=== PATIENT | female | born 1965 | race African-American/Black ===

== ENCOUNTER 2020-09-27 10:14 | Outpatient (CLI) | payer MEDICARE, MEDICAID, SELFPAY ==
--- NOTE | ~2020-09-27 | XR_ITS ---
EXAMINATION: XR lg joint inject/asp w image DATE: 09/27/2020 10:59 INDICATION: Right hip arthritis. TECHNIQUE: A time-out was performed to verify the patient's name, date of , and procedure to b e performed. The procedure including the risks, benefits, and alternatives was discussed with the pat ient. Risks discussed included bleeding and infection. The patient understood the risks and agreed to proceed. The skin overlying the right hip joint was prepped and draped in usual sterile fashion. A nesthetic was administered with 1% lidocaine subcutaneously. A 22 G needle was advanced under fluoro scopic guidance into the joint. Injection of 1 mL of Omnipaque 240 confirmed intra-articular positio n of the needle. Subsequently, injectate consisting of 2 mL 0.5% bupivacaine and 1 mL 80 mg/mL Depo- Medrol was instilled. The needle was removed and the entry site was cleaned and dressed. There were no immediate complications. Fluoroscopy exposure time was 0.1 minutes. The total number of images wa s 2. FINDINGS: Real-time fluoroscopy demonstrates the needle in the right hip joint. IMPRESSION: 1. Fluoroscopy guided right hip joint injection of local anesthetic and steroid . Reviewed, dictated and finalized at location A. BUYER
== END 2020-09-27 10:15 | disposition home or self-care (01) ==
PROVIDERS: PCP Family Medicine; Visit Provider Orthopaedic Surgery
DX: M16.11 Unilateral primary osteoarthritis, right hip (principal)
CPT/HCPCS: 20610; 77002; J1040; Q9966

== ENCOUNTER 2020-11-05 12:14 | Outpatient (CLI) | payer MEDICARE, SELFPAY ==
[2020-11-05 12:40] LABS: Albumin Level 4.5 g/dL (3.5-5.1)
== END 2020-11-05 12:15 | disposition home or self-care (01) ==
LOC: ANHLAB 12:16
PROVIDERS: PCP Family Medicine; Visit Provider Nurse Practitioner Family
DX: Z01.812 Encounter for preprocedural laboratory examination (principal)
CPT/HCPCS: 36415; 82040

== ENCOUNTER → 2020-12-04 00:21 | Outpatient (CLI) | payer MEDICARE, SELFPAY ==
[2020-12-05 00:21] LABS: SARS-CoV-2 RNA PCR Negative
== END ==
PROVIDERS: PCP Family Medicine; Visit Provider Orthopaedic Surgery
DX: Z01.812 Encounter for preprocedural laboratory examination (principal); Z20.822 Contact with and (suspected) exposure to COVID-19
CPT/HCPCS: C9803; U0003; U0005

== ENCOUNTER 2020-12-07 01:50 | Day surgery (SDC) | payer MEDICARE, SELFPAY ==
--- NOTE | 2020-11-30 09:42 | PM.IMHP ---
H&P: HPI History of Present Illness Date/Time: Shoulder/Arm Injury/Condition Pt presents with left shoulder pain that has been present since . She had a left wrist triquetral fx in March and was being treated by a different physician. She is now experiencing increased pain to the left shoulder that is posterior, near the scapula. She states is is burning, nerve pain . She cannot fully abduct her arm, without pain. She has taken meloxicam and tramadol to treat her pain. She most recently received a cortisone injection to the Left shoulder on 09/09/2020 which, she states, only gave her relief for 2 days. Dominant hand: right Current symptoms: Reports stiffness, weakness and radiation (down arm) Location: arm, posterior, lateral and proximal Character: constant, stabbing, radiating, throbbing and burning Onset: 4-6 months Exacerbated by: rotational activities, prolonged activity, sleeping, reaching/overhead motion and lying on affected side Previous treatments: Anti-inflammatory meds: left and Injections: left Improved by treatment/surgery: no Chief Complaint: LEFT SHOULDER PAIN Review of Systems Review of Systems: All systems reviewed & are unremarkable except as noted in HPI and below Constitutional: Constitutional: Denies headache(s) and Denies weakness Eyes: Eyes: Denies blurry vision, Denies change in vision and Denies loss of vision ENT: Denies dizziness, Denies dry mouth, Denies headache(s) and Denies nasal congestion Cardiovascular: Cardiovascular: Denies chest pain, Denies syncope, Denies leg edema and Denies dyspnea on exertion Respiratory: Respiratory: Denies cough and Denies dyspnea on exertion Gastrointestinal: Gastrointestinal: Denies abdominal pain, Denies constipation and Denies diarrhea Genitourinary: Genitourinary: Denies urinary frequency Musculoskeletal: Musculoskeletal: Reports as per HPI and Denies numbness Integumentary/Breasts: Skin/Breast: Reports system reviewed and no additional complaints, except as docu Neurologic: Denies dizziness, Denies syncope, Denies headache(s), Denies loss of vision, Denies numbness and Denies weakness Psychiatric: Psychiatric: Reports no additional psychiatric complaints Endocrine: Endocrine: Reports no additional endocrine complaints Hematologic/Lymphatic: Hematologic/Lymphatic: Reports no additional hematologic/lymphatic complaints PMFSH Past Medical History Medical History Anxiety Asthma Depression Knee joint effusion Latex allergy Left shoulder pain Seasonal allergies Vision abnormalities Surgical History Surgical History History of gastric bypass Family History Family History Other Diabetes mellitus Family history of arthritis Family history of cardiovascular disease Family history of mental disorder Hypertension Social History Social History Smoking status: Never smoker Alcohol intake: current Meds Home Medications and Allergies Home Medications Medication Instructions Recorded Confirmed Type bupropion HCl 300 mg 24 hr tablet, 300 mg PO QAM 09/09/20 11/05/20 History extended release iron, carbonyl PO 09/09/20 11/05/20 History multivitamin 1 cap PO DAILY 09/09/20 11/05/20 History vitamin B complex 1 tablet PO DAILY 09/09/20 11/05/20 History chlorhexidine gluconate 4 % 1 applic TOPICAL ONCE #237 ml 11/08/20 Rx topical liquid Allergies Allergy/AdvReac Type Severity Reaction Status Date / Time Sulfa (Sulfonamide Allergy Severe hives Verified 11/11/20 13:19 Antibiotics) sulfamethoxazole Allergy Severe hives Verified 11/11/20 13:19 alprazolam Allergy Unknown Unknown Verified 11/11/20 13:19 latex Allergy Unknown Unknown Verified 11/11/20 13:19 loratadine Allergy Unknown Unknown Verified 11/11
[2020-12-02 16:59] VITALS: BMI 27.4
--- NOTE | 2020-12-06 10:40 | WPDANESEPPF ---
Anes - Initial Pre Proc Eval Procedure: Operation Date: 12/07/20 07:30 Proposed Procedures p Left Open Rotator Cuff Repair - Simone Pascual MD Date/Time: 12/06/20 10:40 Surgeon: Simone Pascual MD Pre Op Diagnosis: Left Shoulder Rotator Cuff Tear Patient Data Age: 55 Gender: F Height: 1.65 m Weight: 74.84 kg Allergies Allergy/AdvReac Type Severity Reaction Status Date / Time Sulfa (Sulfonamide Allergy Severe hives Verified 11/11/20 13:19 Antibiotics) sulfamethoxazole Allergy Severe hives Verified 11/11/20 13:19 alprazolam Allergy Unknown Unknown Verified 11/11/20 13:19 latex Allergy Unknown Rash Verified 12/02/20 16:13 loratadine Allergy Unknown Difficulty Verified 12/02/20 16:13 Breathing Penicillins Allergy Unknown Dizziness Verified 12/02/20 16:13 sulfamethizole Allergy Unknown Hives Verified 12/02/20 16:05 trimethoprim Allergy Unknown Hives Verified 12/02/20 16:13 Home Medications Medication Instructions Recorded Confirmed Type bupropion HCl 300 mg 24 hr tablet, 300 mg PO QAM 09/09/20 12/02/20 History extended release iron, carbonyl 1 cap PO DAILY 09/09/20 12/02/20 History multivitamin 1 cap PO DAILY 09/09/20 12/02/20 History vitamin B complex 1 tablet PO DAILY 09/09/20 12/02/20 History albuterol 1 puff INHALATION PRN 12/02/20 12/02/20 History alprazolam 1 mg PO PRN 12/02/20 12/02/20 History omeprazole 40 mg PO DAILY 12/02/20 12/02/20 History promethazine 6.25 mg PO PRN 12/02/20 12/02/20 History tramadol 50 mg PO PRN 12/02/20 12/02/20 History venlafaxine 150 mg PO DAILY 12/02/20 12/02/20 History Patient hx anesthesia problems: none Family hx anesthesia problems: none PMFSH Past Medical History Medical History (Updated 12/06/20 @ 10:41 by Edmund Bhandari MD) Anxiety Asthma Bipolar 1 disorder Depression Knee joint effusion Latex allergy Left shoulder pain Overweight (BMI 25.0-29.9) Seasonal allergies Vision abnormalities Surgical History Surgical History History of gastric bypass Family History Family History Other Diabetes mellitus Family history of arthritis Family history of cardiovascular disease Family history of mental disorder Hypertension Social History Social History Smoking status: Never smoker Alcohol intake: current Living arrangements: with family Gender identity (if verbalized by the patient): Female Spiritual care concerns: No Anes - Eval Final PreProcedure Day of Procedure 12/06/20 10:40 Patient weight: overweight Heart: regular rate and rhythm Lungs: clear to auscultation and normal air movement Airway: Mallampati scale class II Neurological: alert and oriented Last oral intake: >/= 8 hours ASA classification: II Emergent: no Anesthetic plan: proceed Anesthesia type and monitoring: general ETT Informed Consent: The patient's anesthetic plan and its attendant risks and benefits were discussed with the patient/family/POA. Questions were solicited and answers provided to the satisfaction of the patient/family/POA.
--- NOTE | 2020-12-06 10:43 | WPDANESPNB ---
Anes - Peripheral Nerve Block Date/Time: 12/06/20 10:43 I have discussed with the patient/family/POA the placement of a peripheral nerve block for post-operative pain management, including associated risks, benefits, complications, and side effects. Alternative methods of post-operative analgesia were detailed. Questions were solicited and answers provided to the satisfaction of the patient/family/POA. Time-Out: A pre-procedural Time-Out was completed immediately before starting the procedure and confirmed: Patient Identification, Site, Procedure, Patient Position and the Availability of Requisite Equipment. Clinical Indications: Acute post-operative pain management requested by the operative surgeon. Nerve Block Insertion Note Anes-nerve block: supraclavicular left Patient position: supine Skin prep: chlorhexidine Needle: 22 gauge, stimulating, insulated echogenic needle. Needle length: 80 mm Technique: ultrasound (in plane) Injectate: bupivacaine 0.5% with epi 5 mcg/ml (20cc) Observations: tolerated well Complications: none Procedure start time:: 750 Procedure end time:: 755
[2020-12-07] VITALS (8 sets, daily range): BP systolic 105–140; BP diastolic 60–90; PULSE 78–91; RESP 12–20; TEMP 36.7–37.1; O2SAT 96–100
[2020-12-07] MEDS: ACETAMINOPHEN 500 MG TABLET 1000 MG PO (06:57)
[2020-12-07] MEDS: LACTATED RINGERS 1,000 ML 30 ML IV CONT ×2 (06:58→10:35)
[2020-12-07] MEDS: KETOROLAC 15 MG/ML VIAL (*BKC) IV PUSH (07:08)
[2020-12-07 07:32] LABS: Hematocrit 37.2 % (37.0-47.0); Hemoglobin 11.9 g/dL (12.0-15.0)
--- NOTE | 2020-12-07 07:41 | WPDHPUPDATE1 ---
History and Physical Update Update Date/Time: 12/07/20 07:41 History and Physical has been reviewed, including an updated exam of the patient. There are NO changes in the patient's condition. Risks, benefits, and alternatives have been discussed and questions answered. Patient agrees to proceed with procedure.
[2020-12-07] MEDS: ceFAZolin 2 GM/D5W 50 ML 2 GM/50 ML BAG IVPB (07:58)
--- NOTE | 2020-12-07 09:03 | SUR.OPER ---
left shoulder/implant BioComposite Corkscrew Suture [place] 5.5x14.7mm lot [id number], exp 2024-07-28.
--- NOTE | 2020-12-07 09:22 | SUR.OPER ---
biocmposite corkscrew suture anchor 5.5x14.7mm x1 lot [id number], exp 2024-07-28
--- NOTE | 2020-12-07 09:45 | SUR.OPER ---
suture anchor biocomposite corkscrew 5.5x14.7mm lot [id number], exp 2024-08-28 x1
--- NOTE | 2020-12-07 10:28 | PM.PROC ---
Procedure Note - Detailed Date of procedure: 12/07/20 Pre-op diagnosis: Left Shoulder Rotator Cuff Tear Post-op diagnosis: same Procedure performed: REPAIR OF LEFT ROTATOR CUFF WITH DCE Description of procedure: THE PATIENT WAS TAKEN TO THE OPERATING ROOM AND THEN INTUBATED AND PLACED IN THE BEACH CHAIR POSITION. THE LEFT UPPER EXTREMITY WAS PREPPED AND DRAPED IN THE NORMAL STERILE FASHION. AN INCISION WAS MADE IN BETWEEN THE KANWAL-LATERAL ACROMION AND THE AC JOINT. THE FASCIA WAS IDENTIFIED. THE AC JOINT WAS IDENTIFIED AND THEN INCISED. THE AC JOINT HAD SEVERE DJD. 0.5 CM OF DISTAL CLAVICLE WAS REMOVED. OSTEOPHYTES WERE REMOVED FROM THE DISTAL CLAVICLE AND THE AROMION. THE WOUND WAS WASHED AND THEN THE CAPSULE WAS REPAIRED WITH 0 VYCRIL SUTURE. NEXT A MINI OPEN INCISION WAS MADE THROUGH THE DELTOID MUSCLE EXPOSING THE SUBACROMIAL SPACE. A LIMITED ACROMIOPLASTY WAS PREFORMED. THE ROTATOR CUFF WAS IDENTIFIED. THERE WAS A FULL THICKNESS LARGE TEAR TO A LARGE PART OF THE CUFF. THERE WAS RETRACTION OF THE TERES MINOR TO THE LEVEL OF THE GLENOID. THE REST OF THE CUFF MOBILIZED AND SCAR TISSUE AND BURSAE WAS REMOVED UNTIL THE CUFF WAS MOBILIZED TO ITS INSERTION POINT. THE GREATER TUBEROSITY WAS DEBRIDED TO BLEEDING BONE. 3 ATHREX 5.5 SUTURE ANCHORS WERE PLACED IN TO GOOD BONE AND HAD VERY GOOD BITES. SANAM-KOFFI TYPE REPAIRS WERE DONE TO THE ROTATOR CUFF AND THERE WAS GOOD APPROXIMATION TO THE GREATER TUBEROSITY. THE REPAIR WAS EXCELLENT. THERE WAS NO IMPINGEMENT ON THE REPAIR FROM THE ACROMION WITH RANGE OF MOTION. THE WOUND WAS IRRIGATED WITH COPIOUS AMOUNTS OF ANTIBIOTIC SOLUTION. THE DELTOID MUSCLE WAS REPAIRED WITH #2 FIBER WIRE AND 0 VICRYL SUTURE. THE SUBCUTANEOUS LAYER WAS APPROXIMATED WITH 2-0 VICRYL. THE SKIN WAS APPROXIMATED WITH 3-0 QUIL AND DERMABOND. STERILE DRESSING WAS APPLIED. PATIENT WAS EXTUBATED. Anesthesia: GETA Surgeon: Simone Pascual MD Estimated blood loss (mL): 20 Complications: No immediate complications Condition: stable Disposition: PACU
[2020-12-07] MEDS: fentaNYL CITRATE INJ (*CRX) 100 MCG/2 ML VIAL 25 MCG IV PUSH ×4 (11:02→11:19)
[2020-12-07] MEDS: oxyCODONE HCL (*CRX) 5 MG TAB IR PO (11:45)
== END 2020-12-07 12:32 | disposition home or self-care (01) ==
PROVIDERS: Anesthesiology; PCP Family Medicine; Visit Provider Orthopaedic Surgery
PROC: (CPT 23420; principal; 2020-12-07 07:30)
DX: M75.102 Unspecified rotator cuff tear or rupture of left shoulder, not specified as traumatic (principal); G89.18 Other acute postprocedural pain; J45.909 Unspecified asthma, uncomplicated; F31.9 Bipolar disorder, unspecified; F41.9 Anxiety disorder, unspecified; Z98.84 Bariatric surgery status
CPT/HCPCS: 23420; 23120; 64415; 36415; 85014; 85018; A9270; C1713; C9803; J0330; J0690; J1885; J2250; J2405; J2704; J3010; J7120; U0003; U0005

== ENCOUNTER 2021-03-17 11:39 | Outpatient (CLI) | payer MEDICARE, SELFPAY ==
--- NOTE | ~2021-03-17 | XR_ITS ---
EXAMINATION: XR lg joint inject/aspiration DATE: 03/17/2021 12:26 INDICATION: Right hip arthritis. TECHNIQUE: A time-out was performed to verify the patient's name, date of , and procedure to b e performed. The procedure including the risks, benefits, and alternatives was discussed with the pat ient. Risks discussed included bleeding and infection. The patient understood the risks and agreed to proceed. The skin overlying the right hip joint was prepped and draped in usual sterile fashion. A nesthetic was administered with 1% lidocaine subcutaneously. A 22 G needle was advanced under fluoro scopic guidance into the joint. Injection of 1 mL of Omnipaque 240 confirmed intra-articular positio n of the needle. Subsequently, injectate consisting of 2 mL 0.5% bupivacaine and 1 mL 80 mg/mL Depo- Medrol was instilled. The needle was removed and the entry site was cleaned and dressed. There were no immediate complications. Fluoroscopy exposure time was 0.1 minutes. The total number of images wa s 2. FINDINGS: Real-time fluoroscopy demonstrates the needle in the right hip joint. Patient's pain prior to procedure:10/10. Patient's pain following the procedure: 0/10. IMPRESSION: 1. Fluoroscopy guided right hip joint injection of local anesthetic and steroid with decrease in the patient's presenting pain. Reviewed, dictated and finalized at location A.
== END 2021-03-17 11:40 | disposition home or self-care (01) ==
PROVIDERS: PCP Family Medicine; Visit Provider Orthopaedic Surgery
DX: M16.11 Unilateral primary osteoarthritis, right hip (principal)
CPT/HCPCS: 20610; J1040

== ENCOUNTER 2021-05-18 10:16 | Outpatient (CLI) | payer MEDICARE, SELFPAY ==
--- NOTE | ~2021-05-18 | XR_ITS ---
EXAMINATION: XR lg joint inject/asp w image DATE: 05/18/2021 12:13 INDICATION: Right hip arthritis TECHNIQUE: A time-out was performed to verify the patient's name, date of , and procedure to b e performed. The procedure including the risks, benefits, and alternatives was discussed with the pat ient. Risks discussed included bleeding and infection. The patient understood the risks and agreed to proceed. The skin overlying the right hip joint was prepped and draped in usual sterile fashion. A nesthetic was administered with 1% lidocaine subcutaneously. A 22 G needle was advanced under fluoro scopic guidance into the joint. Injection of 1 mL of Omnipaque 240 confirmed intra-articular positio n of the needle. Subsequently, injectate consisting of was instilled. Washout of contrast was seen c onfirming intra-articular administration. The needle was removed and the entry site was cleaned and d ressed. There were no immediate complications. Fluoroscopy exposure time was 0.1 minutes. The total number of images was 2. Total DAP was 0.6 mGycm^2 FINDINGS: Real-time fluoroscopy demonstrates the needle in the right hip joint. Patient's pain prior to procedure:10. Patient's pain following the procedure: 8/10. IMPRESSION: 1. Right hip joint injection of local anesthetic and steroid with mild decrease in the patient's pres enting pain. Reviewed, dictated and finalized at location A. IMPRESSION: 1. Right hip joint injection of local anesthetic and steroid with mild decrease in the patient's presenting pain.
== END 2021-05-18 10:17 | disposition home or self-care (01) ==
PROVIDERS: PCP Family Medicine; Visit Provider Orthopaedic Surgery
DX: M16.11 Unilateral primary osteoarthritis, right hip (principal)
CPT/HCPCS: 20610; 77002; J1040; Q9966

== ENCOUNTER 2021-09-15 09:47 | Outpatient (CLI) | payer MEDICARE, SELFPAY ==
--- NOTE | ~2021-09-15 | XR_ITS ---
EXAMINATION: XR lg joint inject/asp w image DATE: 09/15/2021 10:33 INDICATION: Right hip arthritis. TECHNIQUE: A time-out was performed to verify the patient's name, date of , and procedure to b e performed. The procedure including the risks, benefits, and alternatives was discussed with the pat ient. Risks discussed included bleeding and infection. The patient understood the risks and agreed to proceed. The skin overlying the right hip joint was prepped and draped in usual sterile fashion. A nesthetic was administered with 1% lidocaine subcutaneously. A 22 G needle was advanced under fluoro scopic guidance into the joint. Injection of 1 mL of Omnipaque 240 confirmed intra-articular positio n of the needle. Subsequently, injectate consisting of 2 mL 0.5% bupivacaine and 1 mL 80 mg premolar Depo-Medrol was instilled. The needle was removed and the entry site was cleaned and dressed. Ther e were no immediate complications. Fluoroscopy exposure time was 0.1 minutes. The total number of luz ges was 1. FINDINGS: Real-time fluoroscopy demonstrates the needle in the right hip joint. Patient's pain prior to procedure:05/07. Patient's pain following the procedure: 11/07. IMPRESSION: 1. Fluoroscopy guided right hip joint injection of local anesthetic and steroid with decrease in the patient's presenting pain. Reviewed, dictated and finalized at location A. CHIEF MARKETING OFFICER
== END 2021-09-15 09:48 | disposition home or self-care (01) ==
PROVIDERS: Visit Provider Orthopaedic Surgery
DX: M16.11 Unilateral primary osteoarthritis, right hip (principal)
CPT/HCPCS: 20610; 77002; J1040; Q9966

== ENCOUNTER 2021-12-06 11:50 | Outpatient (CLI) | payer OTHER, SELFPAY ==
--- NOTE | 2021-12-06 13:33 | ECG_ITS ---
Measurements Intervals [place] Rate: 73 P: 75 FL: 192 QRS: 53 QRSD: 84 T: 68 QT: 362 QTc: 400 Interpretive Statements SINUS RHYTHM BASELINE ARTIFACT- I, II, III, AVR, AVL, V1 NORMAL ECG Electronically Signed On 12-06-2021 13:54:28 COAT EXAMINER by Meek Quinn D.O.
[2021-12-06 14:23] LABS: Basophils Percent Auto 0.3 % (0.2-1.2); Eosinophils Absolute Auto 0.1 K/mm3 (0-0.3); Eosinophils Percent Auto 1.5 % (0-4.4); Hematocrit 34.9 % (37.0-47.0); Hemoglobin 10.9 g/dL (12.0-15.0); Immature Granulocyte Absolute 0.01 K/mm3 (0.00-0.031); Immature Granulocyte Percent A 0.3 % (0-0.5); Lymphocytes Absolute Auto 1.24 K/mm3 (0.9-3.2); Lymphocytes Percent Auto 31.7 % (18.3-44.2); Mean Corpuscular HGB Conc 31.2 g/dl (32-36); Mean Corpuscular Hemoglobin 28.7 pg (26-34); Mean Corpuscular Volume 91.8 fl (80-100); Mean Platelet Volume 9.9 fl (7.4-10.4); Monocytes Absolute Auto 0.4 K/mm3 (0.1-0.6); Neutrophils Absolute Auto 2.2 K/mm3 (1.3-6.7); Neutrophils Percent Auto 55.2 % (45.5-73.1); Platelet Count Result 222 k/mm3 (150-375); Red Cell Distribution Width 13.2 % (11.5-14.5); White Blood Count 3.9 K/mm3 (4.5-10.0)
[2021-12-06 14:31] LABS: Add Urine Microscopic? YES; Appearance Urine Cloudy (Clear); Bilirubin Urine Negative (Negative); Blood Urine Negative (Negative); Color Urine Yellow (Yellow); Glucose Urine UA Negative (Negative); Ketones Urine Negative (Negative); Leukocyte Esterase Ur Negative LEU/UL (Negative); Mucus Urine Few /lpf; Nitrate Urine Negative (Negative); Protein Urine Negative (Negative); RBC Urine 0-2 /hpf (0-2); Squamous Epithelial Cell Urine Many /hpf (Few)
[2021-12-06 14:33] LABS: Urine Cotinine NEGATIVE
[2021-12-06 14:36] LABS: Prothrombin Time 13.5 Seconds (11.1-14.7)
[2021-12-06 14:37] LABS: Partial Thromboplastin Time 25.4 SECONDS (22.3-36.8)
[2021-12-06 14:38] LABS: Albumin Level 4.2 g/dL (3.5-5.1); Anion Gap 7 mmol/L (8-16); Blood Urea Nitrogen 17 mg/dL (7-17); Calcium 9.6 mg/dL (8.4-10.2); Carbon Dioxide 27 mmol/L (22-30); Chloride 105 mmol/L (98-107); Estimated Glomerular Filt Rate > 60; Glucose 79 mg/dL (65-110); Potassium 3.8 mmol/L (3.4-5.0); Sodium 139 mmol/L (137-145)
[2021-12-06 14:49] LABS: Hemoglobin A1C 5.2 % (<5.7)
== END 2021-12-06 11:51 | disposition home or self-care (01) ==
LOC: ANHSURGERY 11:59
PROVIDERS: PCP Family Medicine; Visit Provider Orthopaedic Surgery
DX: Z01.818 Encounter for other preprocedural examination (principal); M16.11 Unilateral primary osteoarthritis, right hip
CPT/HCPCS: 80048; 80307; 81001; 82040; 83036; 85025; 85610; 85730; 87081; 93005